=== PATIENT | female | born 1965 | race Caucasian/White ===

== ENCOUNTER 2016-10-27 10:40 | Emergency (ER) | payer OTHER ==
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
--- NOTE | 2016-10-27 13:24 | RAD ---
INDICATION: Left elbow injury. TECHNIQUE: 4 views of the left elbow were obtained. FINDINGS: There is a joint effusion present. There is a minimally depressed fracture involving the lateral aspect of the radial head. No other fractures are seen. IMPRESSION: MINIMALLY DEPRESSED FRACTURE OF THE RADIAL HEAD.
[2016-10-27 13:30] VITALS: BP 102/73
== END 2016-10-27 13:47 | disposition home or self-care (01) ==
LOC: UCEAST 10:40
DX: S52.124A Nondisplaced fracture of head of right radius, initial encounter for closed fracture (principal); S80.212A Abrasion, left knee, initial encounter; V18.0XXA Pedal cycle driver injured in noncollision transport accident in nontraffic accident, initial encounter; Y93.55 Activity, bike riding; Y92.9 Unspecified place or not applicable; Z88.0 Allergy status to penicillin
CPT/HCPCS: 99212; G0463

== ENCOUNTER 2017-07-09 07:10 | Emergency (ER) | payer OTHER ==
[2017-07-09 07:23] VITALS: BP 113/72
--- NOTE | 2017-07-09 11:17 | UC ---
Sher Garcia Gabriel, scribed for Zenon Lockett MD on 07/09/17 at 0724 . Throat Pain/Nasal Surendra HPI - HPI Summary HPI Summary: This patient is a 52 year old F presenting to [facility] with a chief complaint of a sore throat that began 3 days ago. The patient rates the pain 4/10 in severity. Patient reports mild cough and post nasal drip. Patient denies chills and fever - History of Current Complaint Stated Complaint: SORE THROAT Time Seen by Provider: 07/09/17 07:14 Hx Obtained From: Patient Hx Last Menstrual Period: 07/29/14 Onset/Duration: Lasting Days - 3, Still Present Severity: Mild Pain Scale Used: 0-10 Numeric Cough: Nonproductive Associated Signs & Symptoms: Positive: Negative - fever and chills, Other - post nasal drip - Allergies/Home Medications Allergies/Adverse Reactions: Allergies Allergy/AdvReac Type Severity Reaction Status Date / Time MS Amoxicillin [Amoxicillin] Allergy Intermediate Rash Verified 10/27/16 10:54 amoxicillin Allergy Rash Verified 07/09/17 07:19 PMH/Surg Hx/FS Hx/Imm Hx Other History Of: Negative For: Hepatitis C, Anticoagulant Therapy - Surgical History Surgical History: Yes Surgery Procedure, Year, and Place: benign breast lump removed, wisdom teeth extraction - Family History Known Family History: Positive: Cardiac Disease, Diabetes Negative: Hypertension, Renal Disease, Respiratory Disease, Seizure Disorder - Social History Lives: With Family Alcohol Use: Weekly Substance Use Type: None Smoking Status (MU): Never Smoked Tobacco - Immunization History Most Recent Tetanus Shot: does not recall Review of Systems Constitutional: Negative - fever ENT: Sore Throat, Other - post nasal drip All Other Systems Reviewed And Are Negative: Yes Physical Exam - Summary Physical Exam Summary: VITAL SIGNS: Reviewed. GENERAL: Patient is a well-developed and nourished female who is lying comfortable in the stretcher. Patient is not in any acute respiratory distress. HEAD AND FACE: Normocephalic EYES: PERRLA, EOMI x 2. EARS: Hearing grossly intact. MOUTH: pharyngeal erythema NECK: Supple, trachea is midline, no adenopathy, no JVD, no carotid bruit. CHEST: Symmetric, no tenderness at palpation LUNGS: Clear to auscultation bilaterally. No wheezing or crackles. CVS: Regular rate and rhythm, S1 and S2 present, no murmurs or gallops appreciated. ABDOMEN: Soft, non-tender. Bowel sounds are normal. No abdominal abnormal pulsations. EXTREMITIES: Full ROM in all major joints, no edema, no cyanosis or clubbing. NEURO: Alert and oriented x 3. No acute neurological deficits. Speech is normal and follows commands. SKIN: Dry and warm Triage Information Reviewed: Yes Vital Signs Reviewed: Yes Throat Pain/Nasal Course/Dx - Course Assessment/Plan: Throat swab was negative for strep throat. I discussed all the findings and test results with the patient. Patient was instructed to return to the urgent care or go to ER immediately if any of the symptoms return or worsens. Plan of care was discussed with the patient, and patient understands and agrees. All questions were answered to patient satisfaction. There were no further complaints or concerns. - Differential Dx/Diagnosis Provider Diagnoses: Pharyngitis Discharge - Sign-Out/Discharge Documenting (check all that apply): Discharge/Admit/Transfer - Discharge Plan Condition: Stable Disposition: HOME Prescriptions: Ibuprofen TAB* [Motrin TAB* 600 MG] 600 mg PO Q8H PRN #30 tab PRN Reason: Pain Patient Education Materials: Pharyngitis (ED) Referrals: Sue Balderrama MD [Primary Care Provider] - Additional Instructions: Take medications as instructed Increase your fluid intake Return to the UC if symptoms worsen The documentation as recorded by the Sher frye Gabriel accurately reflects the service I personally performed and the decisions made by me, Zenon Lockett MD.
== END 2017-07-09 07:50 | disposition home or self-care (01) ==
LOC: UCEAST 07:10
DX: J02.9 Acute pharyngitis, unspecified (principal); R05 Cough; Z88.0 Allergy status to penicillin
CPT/HCPCS: 87651; 99212; G0463

== ENCOUNTER 2017-11-07 17:52 | Emergency (ER) | payer OTHER ==
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
[2017-11-07 20:19] VITALS: BP 111/71
--- NOTE | 2017-11-08 07:15 | RAD ---
INDICATION: Left elbow injury. TECHNIQUE: 4 views of the left elbow were obtained. FINDINGS: There is soft tissue swelling posterior to the olecranon process of the elbow. The bones are in normal alignment. No joint effusion or fracture is seen. Joint spaces appear maintained. IMPRESSION: NO EVIDENCE FOR FRACTURE, IF THE PATIENT'S SYMPTOMS PERSIST RECOMMEND FOLLOW-UP IMAGING. R0
--- NOTE | 2017-11-08 07:17 | RAD ---
INDICATION: Left knee injury. TECHNIQUE: 2 views of the left knee were obtained. FINDINGS: The bones are normal alignment. No joint effusion or fracture is seen. Joint spaces appear maintained. IMPRESSION: NO EVIDENCE FOR FRACTURE. R0
== END 2017-11-07 20:18 | disposition home or self-care (01) ==
LOC: ED 17:52
DX: S09.90XA Unspecified injury of head, initial encounter (principal); S50.312A Abrasion of left elbow, initial encounter; S80.212A Abrasion, left knee, initial encounter; V18.4XXA Pedal cycle driver injured in noncollision transport accident in traffic accident, initial encounter; Y93.55 Activity, bike riding; Y92.9 Unspecified place or not applicable; Z88.3 Allergy status to other anti-infective agents
CPT/HCPCS: 70450; 99281

== ENCOUNTER 2017-11-15 10:13 | Emergency (ER) | payer OTHER ==
[2017-11-15 10:22] VITALS: BP 109/68
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
== END 2017-11-15 11:27 | disposition home or self-care (01) ==
LOC: UCEAST 10:13
DX: S80.12XA Contusion of left lower leg, initial encounter (principal); Y93.55 Activity, bike riding; Y92.9 Unspecified place or not applicable; Z88.0 Allergy status to penicillin
CPT/HCPCS: 99211; G0463

== ENCOUNTER 2018-09-28 07:10 | Emergency (ER) | payer OTHER ==
[2018-09-28 07:22] VITALS: BP 122/71
--- NOTE | 2018-09-28 08:06 | UC ---
Lower Extremity/Ankle HPI - HPI Summary HPI Summary: 53-year-old female presents with complaints of left knee pain status post a fall from a ladder 1 week ago. States she was approximately 3 steps up the ladder when bottom of the ladder slipped out and she came down on her knee on one of the steps of the ladder. Complains of pain to the anterior left knee over the patella. Notes some mild bruising and swelling. Also sustained a superficial laceration to the mid medial aspect of the anterior knee. She has been able to walk and bear weight since the injury. States pain is worsened by walking and twisting. Denies any numbness or tingling. - History of Current Complaint Chief Complaint: UCLowerExtremity Stated Complaint: KNEE PAIN Time Seen by Provider: 09/28/18 07:59 Hx Obtained From: Patient Hx Last Menstrual Period: 07/29/14 Pain Intensity: 10 - Allergies/Home Medications Allergies/Adverse Reactions: Allergies Allergy/AdvReac Type Severity Reaction Status Date / Time amoxicillin Allergy Rash Verified 09/28/18 07:22 environmental Allergy Congestion Uncoded 09/28/18 07:22 PMH/Surg Hx/FS Hx/Imm Hx Previously Healthy: Yes - Denies significant PMH Other History Of: Negative For: Hepatitis C, Anticoagulant Therapy - Surgical History Surgical History: Yes Surgery Procedure, Year, and Place: benign breast lump removed, wisdom teeth extraction - Family History Known Family History: Positive: None, Cardiac Disease, Diabetes Negative: Hypertension, Renal Disease, Respiratory Disease, Seizure Disorder , Blood Disorder - Social History Occupation: Employed Full-time Lives: Alone Alcohol Use: Occasionally Substance Use Type: None Smoking Status (MU): Never Smoked Tobacco - Immunization History Most Recent Tetanus Shot: does not recall Review of Systems All Other Systems Reviewed And Are Negative: Yes Constitutional: Negative: Fever, Chills Skin: Positive: Bruising Respiratory: Positive: Negative Cardiovascular: Positive: Negative Gastrointestinal: Positive: Negative Genitourinary: Positive: Negative Motor: Negative: Weakness Neurovascular: Negative: Decreased Sensation Musculoskeletal: Positive: Arthralgia - See HPI Neurological: Positive: Negative Is Patient Immunocompromised?: No Physical Exam - Summary Physical Exam Summary: GENERAL APPEARANCE: Well developed, well nourished, alert and cooperative, and appears to be in no acute distress. CARDIAC: Normal S1 and S2. No S3, S4 or murmurs. Rhythm is regular. There is no peripheral edema, cyanosis or pallor. Extremities are warm and well perfused. Capillary refill is less than 2 seconds. Peripheral pulses intact. LUNGS: Clear to auscultation without rales, rhonchi, wheezing or diminished breath sounds. ABDOMEN: Positive bowel sounds. Soft, nondistended, nontender. No guarding or rebound. No masses or hepatosplenomegally. MUSKULOSKELETAL: Normal muscular development. Normal gait. EXTREMITIES: Tenderness over the patella of the left knee with mild ecchymosis and edema. 1 cm superficial linear abrasion to the medial aspect of the mid anterior knee. No erythema noted. No laxity of the joint noted. SKIN: Skin normal color, texture and turgor with no lesions or eruptions. Triage Information Reviewed: Yes Vital Signs: Initial Vital Signs Temp 98.1 F 09/28/18 07:14 Pulse 47 09/28/18 07:14 Resp 18 09/28/18 07:14 BP 122/71 09/28/18 07:14 Pulse Ox 98 09/28/18 07:14 Vital Signs Reviewed: Yes Images Front/Back of Body, Lg ([place]): 1 - Superficial linear abrasion Lower Extremity Course/Dx - Course Course Of Treatment: 53-year-old female presents with complaints of left knee pain status post a fall from a ladder 1 week ago. States she was approximately 3 steps up the ladder when bottom of the ladder slipped out and she came down on her knee on one of the steps of the ladder. Complains of pain to the anterior left knee over the patella. Notes some mild bruising and swelling. Also sustained a superficial laceration to the mid medial aspect of the anterior knee. She has been able to walk and bear weight since the injury. States pain is worsened by walking and twisting. Denies any numbness or tingling. Afebrile. Vital signs stable. Patient had tenderness over the patella of the left knee with mild ecchymosis and edema. 1 cm superficial linear abrasion to the medial aspect of the mid anterior knee. No erythema noted. No laxity of the joint noted. X-ray showed no acute fracture. Discussed findings with patient. Suspect that her pain may be a mild traumatic prepatellar bursitis versus contusion. Recommending conservative treatment for left knee pain including over-the- counter analgesics and RICE. She is to follow-up with orthopedic surgery in 5- 7 days if symptoms are not improving. Anticipatory guidance and warning symptoms were reviewed with the patient. Verbalizes understanding and agrees with plan of care. - Differential Dx/Diagnosis Differential Diagnosis/HQI/PQRI: Arthritis, Dislocation, Fracture (Closed), Sprain Provider Diagnosis: Acute pain of left knee Discharge - Sign-Out/Discharge Documenting (check all that apply): Patient Departure All imaging exams completed and their final reports reviewed: Yes - Discharge Plan Condition: Stable Disposition: HOME Patient Education Materials: Knee Pain (ED) Referrals: Sue Balderrama MD [Primary Care Provider] - Ventura Stokes MD [Medical Doctor] - 5 Days (Call for appointment) Additional Instructions: The x-ray performed in the clinic today showed no evidence of a fracture. Based on your history and exam I suspect that you may have some inflammation of the prepatellar bursa that is causing your knee pain. Rest the knee as much as possible. Apply ice to the affected area for 15-20 minutes at least 4 times a day to help with the pain and swelling. Elevate the leg to help reduce swelling. Take acetaminophen (Tylenol) or ibuprofen (Advil, Motrin) according to directions as needed for pain. Follow up with orthopedic surgery in 5-7 days if symptoms do not improve. Call for appointment. Seek immediate medical attention if you have severe pain not managed with pain medication, you are unable to walk or bear any weight, develop numbness or tingling in the foot or toes, or have any worsening of symptoms. - Billing Disposition and Condition Condition: STABLE Disposition: Home
== END 2018-09-28 08:20 | disposition home or self-care (01) ==
LOC: UCEAST 07:10
DX: M25.562 Pain in left knee (principal)
CPT/HCPCS: 99211; G0463

== ENCOUNTER 2018-12-21 03:35 | Emergency (ER) | payer OTHER ==
--- NOTE | 2018-12-21 04:06 | ED ---
HPI Chest Pain - HPI Summary HPI Summary: Pt is a 53 y/o F presenting to the ED with a chief complaint of chest pain initially onset a couple of hours ago when she woke up out of her sleep. She notes it is mid-sternal radiating to her throat and mid-back, and different than when she has had GERD in the past. She had brief diaphoresis and SOB, but thinks this may have been secondary to anxiety. The pain came in waves, and she states it currently is 2/10, and was 8/10 at its worst. She also has some mild gas pain. She denies nausea. - History of Current Complaint Chief Complaint: EDChestPainROMI Time Seen by Provider: 12/21/18 03:42 Hx Obtained From: Patient Hx Last Menstrual Period: 07/29/14 Onset/Duration: Started Hours Ago, Still Present Timing: Constant, Lasting Hours Initial Severity: Severe Current Severity: Mild Pain Intensity: 2 Pain Scale Used: 0-10 Numeric Chest Pain Location: Mid Sternal Chest Pain Radiates: Yes Chest Pain Radiates To:: Back, Neck - throat Aggravating Factor(s): Nothing Alleviating Factor(s): Spontaneous Resolution Associated Signs and Symptoms: Positive: Chest Pain, Anxiety, Shortness of Breath, Diaphoresis, Nausea, Abdominal Pain - Allergy/Home Medications Allergies/Adverse Reactions: Allergies Allergy/AdvReac Type Severity Reaction Status Date / Time amoxicillin Allergy Rash Verified 12/21/18 03:47 environmental Allergy Congestion Uncoded 12/21/18 03:47 PMH/Surg Hx/FS Hx/Imm Hx Previously Healthy: Yes Endocrine/Hematology History: Denies: Hx Anticoagulant Therapy, Hx Diabetes, Hx Thyroid Disease Cardiovascular History: Denies: Hx Hypertension Respiratory History: Denies: Hx Asthma, Hx Chronic Obstructive Pulmonary Disease (COPD), Other Respiratory Problems/Disorders GI History: Denies: Hx Ulcer - Cancer History Hx Chemotherapy: No Hx Radiation Therapy: No - Surgical History Surgery Procedure, Year, and Place: benign breast lump removed, wisdom teeth extraction Infectious Disease History: No Infectious Disease History: Denies: Hx Clostridium Difficile, Hx Hepatitis, Hx Human Immunodeficiency Virus (HIV), Hx of Known/Suspected MRSA, Hx Shingles, Hx Tuberculosis, Hx Known/ Suspected VRE, Hx Known/Suspected VRSA, History Other Infectious Disease, Traveled Outside the [place] in Last 30 Days - Family History Known Family History: Positive: Cardiac Disease, Diabetes Negative: Hypertension, Renal Disease, Respiratory Disease, Seizure Disorder , Blood Disorder - Social History Alcohol Use: Occasionally Hx Substance Use: No Substance Use Type: Reports: None Hx Tobacco Use: No Smoking Status (MU): Never Smoked Tobacco Review of Systems - ROS Summary Review of Systems Summary: Home Medications Medication Instructions Recorded Confirmed Type LoraTADine TAB(NF) [Claritin 10 MG 10 mg PO DAILY 07/29/14 09/28/18 History TAB(NF)] Positive: Skin Diaphoresis Positive: Chest Pain Positive: Shortness Of Breath Positive: Abdominal Pain. Negative: Nausea Positive: Anxious All Other Systems Reviewed And Are Negative: Yes Physical Exam - Summary Physical Exam Summary: General: Well-developed, thin female. No acute distress. HEENT: Normocephalic, Atraumatic. Eyes: Conjuctiva normal, PERRL. Ears: TMs within normal limits. Nares: (-) discharge, (-) erythema. Oropharynx: Clear, mucous membranes moist, (-) exudates. Neck: Soft, FROM, (-) lymphadenopathy, (-) thyromegaly, (-) JVD. Cardiovascular: Normal sinus rhythm, (-) murmur. Lungs: Clear to auscultation bilaterally (-) wheezes, (-) rales, (-) rhonchi. Abdomen: Soft, mild epigastric tenderness, non-distended, (-) organomegaly, normal bowel sounds. Back: (-) CVA tenderness Extremities: No edema. Skin: Warm, dry, (-) rash. Neuro: Alert and oriented x3, no focal deficits. Psychiatric: Mood normal, affect normal. Triage Information Reviewed: Yes Vital Signs On Initial Exam: Initial Vitals Temp Pulse Resp BP Pulse Ox 98.0 F 49 15 122/71 99 12/21/18 03:45 12/21/18 03:45 12/21/18 03:45 12/21/18 03:45 12/21/18 03:45 Vital Signs Reviewed: Yes Procedures - Sedation Patient Received Moderate/Deep Sedation with Procedure: No Diagnostics - Vital Signs Vital Signs Temp Pulse Resp BP Pulse Ox 12/21/18 03:45 98.0 F 49 15 122/71 99 - Laboratory Result Diagrams: 12/21/18 04:16 12/21/18 04:16 Lab Statement: Any lab studies that have been ordered have been reviewed, and results considered in the medical decision making process. - Radiology CXR Radiology Interpretation Completed By: ED Physician Summary of Radiographic Findings: No infiltrate. No pleural effusion. Pending official radiology report. - EKG 0335 Cardiac Rate: Bradycardia - 41bpm EKG Rhythm: Sinus Bradycardia ST Segment: Normal Ectopy: None Summary of EKG Findings: EKG at 0335 reveals sinus bradycardia with rate of 41 BPM, no acute changes, no ischemic changes. This EKG was reviewed and interpreted by Dr. Jones. Re-Evaluation - Re-Evaluation 1st re-eval Re-Evaluation Time: 05:15 Change: Improved Comment: I have discussed results with the patient and chest pain is resolved. Discussed symptoms that warrant immediate return to ED. Chest Pain Course/Dx - Course Course Of Treatment: Pt is a 53 y/o F presenting to the ED with a chief complaint of chest pain that is mid-sternal radiating to her throat and mid- back. She had brief diaphoresis and SOB, but thinks this may have been secondary to anxiety. The pain came in waves, and she states it currently is 2/ 10, and was 8/10 at its worst. She also has some mild gas pain. She denies nausea. On exam, pt is thin and has some mild epigastric tenderness. CXR shows : No infiltrate. No pleural effusion. Pending official radiology report. EKG at 0335 reveals sinus bradycardia with rate of 41 BPM, no acute changes, no ischemic changes. This EKG was reviewed and interpreted by Dr. Jones. Pts lab results normal aside from MCH of 34, BUN/Creatinine ratio of 21.6, and total Protein of 6.0. As of 514, I have discussed results with the patient and chest pain is resolved. Discussed symptoms that warrant immediate return to ED. Pt will be d/c'ed with dx of chest pain. - Diagnoses Provider Diagnoses: Chest pain Discharge ED - Sign-Out/Discharge Documenting (check all that apply): Patient Departure - Discharge Plan Condition: Stable Disposition: HOME Patient Education Materials: Chest Pain (ED) Referrals: Sue Balderrama MD [Primary Care Provider] - Additional Instructions: Please follow up with your primary care physician within three days. Please return to ED for any new or worsening symptoms. - Billing Disposition and Condition Condition: STABLE Disposition: Home - Attestation Statements Document Initiated by Scribe: Yes Documenting Scribe: Kait Owen Provider For Whom Johnibe is Documenting (Include Credential): Shanae Jones MD. Scribe Attestation: Kait Garcia, scribed for Shanae Jones MD. on 12/21/18 at 0605. Scribe Documentation Reviewed: Yes Provider Attestation: The documentation as recorded by the scribe, Kait Owen accurately reflects the service I personally performed and the decisions made by me, Shanae Jones MD. Status of Scribe Document: Viewed
[2018-12-21 04:24] LABS: ABS Eosinophils 0.2 10^3/ul (0-0.6); ABS Lymphocytes 1.9 10^3/ul (1.0-4.8); ABS Monocytes 0.5 10^3/ul (0-0.8); ABS Neutrophils 1.6 10^3/ul (1.5-7.7); Eosinophil % 4.3 %; Hematocrit 40 % (35-47); Hemoglobin 13.8 g/dL (12.0-16.0); Lymphocyte % 45.8 %; Mean Corpuscular HGB Conc 35 g/dL (31-36); Mean Corpuscular Hemoglobin 34 pg (27-31); Mean Corpuscular Volume 96 fL (80-97); Mean Platelet Volume 8.3 fL (7.4-10.4); Platelet Count 209 10^3/uL (150-450); Red Blood Count 4.13 10^6 /uL (3.70-4.87); Red Cell Distribution Width 13 % (10-15); White Blood Count 4.2 10^3/uL (3.5-10.8)
[2018-12-21 04:33] LABS: INR 0.98 (0.82-1.09)
[2018-12-21 04:43] LABS: BUN/Creatinine Ratio 21.6 (8-20); Calcium 8.8 mg/dL (8.6-10.3); EGFR African American 152.1 (>60); EGFR Non-African American 125.7 (>60); Potassium 3.7 mmol/L (3.5-5.0); Total Bilirubin 0.6 mg/dL (0.2-1.0)
[2018-12-21 04:44] LABS: Troponin I 0.01 ng/mL (<0.04)
[2018-12-21] MEDS ORDERED: Cetirizine* 10 MG TAB PO ONE (05:40)
[2018-12-21 05:42] VITALS: BP 111/67
== END 2018-12-21 05:41 | disposition home or self-care (01) ==
LOC: ED 03:35
DX: R07.9 Chest pain, unspecified (principal); F41.9 Anxiety disorder, unspecified; R06.02 Shortness of breath; R10.9 Unspecified abdominal pain
CPT/HCPCS: 36415; 71045; 80053; 84484; 85025; 85610; 93005; 99282; A9270-GY